=== PATIENT | female | born 1945 | race Caucasian/White ===

== ENCOUNTER 2016-11-15 09:33 | Emergency (ER) | payer MEDICARE, OTHER ==
[~2016-11-15] VITALS: Ht 160 cm; Wt 125.0 kg
[~2016-11-15 09:33] MED LIST: CALC500 PO; COMBAER INH; ECOT81TA2 PO; ENAL5TAB PO; GLIM4 PO; KCL20 PO; OMEP20TA PO; TIOT18I INH
[2016-11-15 09:41] VITALS: BP 172/67; PULSE 98; RESP 18; TEMP 98.6
[2016-11-15] MEDS ORDERED: traMADol HCL 50 MG TAB PO ONE (09:45)
[2016-11-15] MEDS ORDERED: FURO40TA PO (09:47)
[2016-11-15] MEDS ORDERED: BUME2TAB PO (09:47)
[2016-11-15] MEDS ORDERED: MAGN100T2 PO (09:47)
[2016-11-15] MEDS ORDERED: POTA-163 PO (09:47)
[2016-11-15] MEDS ORDERED: ASPI81TA81 PO (09:47)
--- NOTE | 2016-11-15 11:07 | RADRPT ---
EXAM DATE/TIME: 11/15/2016 10:06 [facility] COMPARISON: No previous studies available for comparison. INDICATIONS : Lower back pain after falling up the steps on a [place]. MEDICAL HISTORY : Hypertension. Chronic obstructive pulmonary disease. Renal calculi.Congestive heart failure. SURGICAL HISTORY : Appendectomy. Cholecystectomy.Lithotripsy. ENCOUNTER: Initial ACUITY: 1 day PAIN SCORE: 7/10 LOCATION: lumbar FINDINGS: There are five non-rib bearing vertebral bodies. The vertebral bodies are in normal alignment withou t evidence of subluxation or scoliosis. Degenerative disc disease with disc space narrowing and dave nal spondylosis is noted. Significant arthropathy is seen in the lumbar spine at L4-5 and L5-S1. The posterior elements are intact without evidence of spondylolysis. The pedicles are intact. Bony mineralization is normal. No fracture is identified. CONCLUSION: No acute disease. Degenerative disc disease and facet arthropathy. Carl Junior MD on November 15, 2016 at 11:03 Board Certified Radiologist. This report was verified electronically.
--- NOTE | 2016-11-15 11:09 | RADRPT ---
EXAM DATE/TIME: 11/15/2016 10:14 [facility] COMPARISON: No previous studies available for comparison. INDICATIONS : Left hip pain after falling up the steps on the [place]. MEDICAL HISTORY : Hypertension. Chronic obstructive pulmonary disease. Renal calculi.Congestive heart failure. SURGICAL HISTORY : Appendectomy. Cholecystectomy.Lithotripsy. ENCOUNTER: Initial ACUITY: 1 day PAIN SCORE: 7/10 LOCATION: Left hip FINDINGS: Examination of the left hip was performed with AP Pelvis. The primary and secondary trabecular patte rn of the femoral neck is intact. The hip joint is of normal width without significant sclerosis or bony hypertrophy. The acetabulum is grossly intact. CONCLUSION: No acute disease. Carl Junior MD on November 15, 2016 at 11:07 Board Certified Radiologist. This report was verified electronically.
--- NOTE | 2016-11-15 11:10 | RADRPT ---
EXAM DATE/TIME: 11/15/2016 10:16 [facility] COMPARISON: No previous studies available for comparison. INDICATIONS : Left knee pain after falling up the steps on the [place]. MEDICAL HISTORY : Hypertension. Chronic obstructive pulmonary disease. Renal calculi.Congestive heart failure. SURGICAL HISTORY : Appendectomy. Cholecystectomy.Lithotripsy. ENCOUNTER: Initial ACUITY: 1 day PAIN SCORE: 7/10 LOCATION: Left knee FINDINGS: Four view examination of the left knee demonstrates no evidence of fracture or dislocation. Bones samir ear demineralized. Mild arthropathy is noted with joint space narrowing and marginal spurring. Small joint effusion is identified. CONCLUSION: Mild arthropathy with small joint effusion but no evidence of acute fracture. Carl Junior MD on November 15, 2016 at 11:07 Board Certified Radiologist. This report was verified electronically.
--- NOTE | 2016-11-15 11:11 | RADRPT ---
EXAM DATE/TIME: 11/15/2016 10:17 [facility] COMPARISON: No previous studies available for comparison. INDICATIONS : Right knee pain after falling up the steps on a [place]. MEDICAL HISTORY : Hypertension. Chronic obstructive pulmonary disease. Renal calculi.Congestive heart failure. SURGICAL HISTORY : Appendectomy. Cholecystectomy.Lithotripsy. ENCOUNTER: Initial ACUITY: 1 day PAIN SCORE: 7/10 LOCATION: Right knee FINDINGS: Four view examination of the right knee demonstrates no evidence of fracture or dislocation. Decrease d bone density is noted. A prominent spur seen along the superior patellar margin. There is no eviden ce of joint effusion. CONCLUSION: Chronic arthropathy and bony demineralization. No acute process. Carl Junior MD on November 15, 2016 at 11:09 Board Certified Radiologist. This report was verified electronically.
--- NOTE | 2016-11-15 11:12 | RADRPT ---
EXAM DATE/TIME: 11/15/2016 10:18 [facility] COMPARISON: No previous studies available for comparison. INDICATIONS : Left tibia/fibula pain after falling up the steps on a [place]. MEDICAL HISTORY : Hypertension. Chronic obstructive pulmonary disease. Renal calculi.Congestive heart failure. SURGICAL HISTORY : Appendectomy. Cholecystectomy.Lithotripsy. ENCOUNTER: Initial ACUITY: 1 day PAIN SCORE: 7/10 LOCATION: Left tibia/fibula FINDINGS: Two view examination of the left tibia demonstrates no evidence of fracture or dislocation. Bony min eralization is normal. The soft tissue structures are intact. CONCLUSION: No acute disease. Carl Junior MD on November 15, 2016 at 11:10 Board Certified Radiologist. This report was verified electronically.
[2016-11-15] MEDS ORDERED: TRAM50TA PO (12:15)
--- NOTE | 2016-11-15 12:15 | PD ---
HPI Chief Complaint: Pain: Acute or Chronic Time Seen by Provider: 09:42 Travel History International Travel<30 days: No Contact w/Intl Traveler<30days: No Traveled to known affect area: No History of Present Illness HPI Patient is a 71 year old female who comes in complaining of knee pain after a fall yesterday. She says she was walking up the stairs [place] the [place] yesterday when she fell straight down on her knees. She denies hitting her head. She denies any other injuries. She says the pain is worse in her left knee. She has tried taking Tylenol for pain without relief. PFSH Past Medical History Depression: Yes Cancer: No Cardiovascular Problems: Yes Congestive Heart Failure: Yes COPD: Yes Diabetes: No Endocrine: No Gastrointestinal Disorders: No GERD: Yes Genitourinary: Yes Hepatitis: No Hiatal Hernia: No Hypertension: Yes Immune Disorder: No Implanted Vascular Access Dvce: No Kidney Stones: Yes (HX LITHOTRIPSY) Medical other: Yes (GERD) Musculoskeletal: No Neurologic: No Psychiatric: Yes Reproductive: No Respiratory: Yes (COPD) Thyroid Disease: No ?: Not Menopausal: Yes : 3 Para: 2 Past Surgical History Abdominal Surgery: Yes (63' APPENDECTOMY) Appendectomy: Yes Section: Yes (X 2) Cholecystectomy: Yes Genitourinary Surgery: Yes (LITHOTRIPSY 2006) Gynecologic Surgery: Yes (82' 87' ) Other Surgery: Yes (KIDNEY STONES) Social History Alcohol Use: No Tobacco Use: No Substance Use: No Allergies-Medications (Allergen,Severity, Reaction): Coded Allergies: Furadantin (Verified Allergy, Severe, SEIZURE, 07/14/15) Metoprolol (Verified Allergy, Severe, TONGUE SWELLING, 07/14/15) Reported Meds & Prescriptions Reported Meds & Active Scripts Active Tramadol (Tramadol HCl) 50 Mg Tab 50 Mg PO Q6H PRN Reported Bumetanide 2 Mg Tab 2 Mg PO BID Potassium Chloride ER (Potassium Chloride) 20 Meq Tab 20 Meq PO BID Aspir-81 (Aspirin) 81 Mg Tabdr 81 Mg PO DAILY Magnesium Citrate 100 Mg Tab 250 Mg PO DAILY PRN Furosemide 40 Mg Tab 40 Mg PO BID Review of Systems Except as stated in HPI: all other systems reviewed are Neg General / Constitutional: No: Fever, Chills Eyes: No: Blurred Vision HENT: No: Headaches, Lightheadedness Cardiovascular: No: Chest Pain or Discomfort Respiratory: No: Shortness of Breath Gastrointestinal: No: Nausea, Vomiting Musculoskeletal: Positive: Pain Skin: No Rash, No Change in Pigmentation Neurologic: No: Syncope Physical Exam Narrative GENERAL: Awake and alert, in no acute distress. SKIN: Focused skin assessment warm/dry. HEAD: Atraumatic. Normocephalic. EYES: Pupils equal and round. No scleral icterus. ENT: Mucous membranes pink and moist. NECK: Trachea midline. No JVD. CARDIOVASCULAR: Regular rate and rhythm. No murmur appreciated. RESPIRATORY: No accessory muscle use. Clear to auscultation. Breath sounds equal bilaterally. MUSCULOSKELETAL: No obvious deformities. No clubbing. No cyanosis. No edema. Tender to palpation of the lumbar spine. Pain with palpation of the left hip. Pain with movement of the left knee. Tender to palpation of the left knee as well as left lower extremity. Tender to palpation of the right knee. She has full range of motion of both knees. Sensation intact. NEUROLOGICAL: Awake and alert. No obvious cranial nerve deficits. Motor grossly within normal limits. Normal speech. PSYCHIATRIC: Appropriate mood and affect; insight and judgment normal. Data Data Last Documented VS Vital Signs Date Time Temp Pulse Resp B/P Pulse Ox O2 Delivery O2 Flow Rate FiO2 11/15/16 09:41 98.6 98 18 172/67 Orders Knee, Complete (4vws) (11/15/16 ) Spine, Lumbar Comp W/Obliq (11/15/16 ) Knee, Complete (4vws) (11/15/16 ) Tibia/Fibula (Ap/Lat) (11/15/16 ) Tramadol (Ultram) (11/15/16 09:45) Hip, Uni(Ap&Lat) W Ap Pelvis (11/15/16 ) MDM Medical Decision Making Medical Screen Exam Complete: Yes Emergency Medical Condition: Yes Differential Diagnosis Knee fracture versus pelvic fracture versus hip fracture versus lumbar spine fracture versus musculoskeletal strain Narrative Course Patient is a 71-year-old female comes in complaining of pain after a fall yesterday. Exam shows tenderness to left leg. X-rays of the lumbar spine, pelvis, left hip, left knee, left tib-fib as well as right knee performed. X- ray show no evidence of acute process. Patient given tramadol for pain. She reports feeling better. We'll be discharged with prescription for tramadol. Advised this may make her drowsy. Advised follow-up with a primary care doctor. Advised to return to the ED as needed for any worsening symptoms. Last 24 hours Impressions Tibia/Fibula X-Ray 11/15/16 0000 Signed Impressions: Service Date/Time: Tuesday, November 15, 2016 10:18 - CONCLUSION: No acute disease. Carl Junior MD Lumbar Spine X-Ray 11/15/16 0000 Signed Impressions: Service Date/Time: Tuesday, November 15, 2016 10:06 - CONCLUSION: No acute disease. Degenerative disc disease and facet arthropathy. Carl Junior MD Knee X-Ray 11/15/16 0000 Signed Impressions: Service Date/Time: Tuesday, November 15, 2016 10:17 - CONCLUSION: Chronic arthropathy and bony demineralization. No acute process. Carl Junior MD Knee X-Ray 11/15/16 0000 Signed Impressions: Service Date/Time: Tuesday, November 15, 2016 10:16 - CONCLUSION: Mild arthropathy with small joint effusion but no evidence of acute fracture. Carl Junior MD Hip and Pelvis X-Ray 11/15/16 0000 Signed Impressions: Service Date/Time: Tuesday, November 15, 2016 10:14 - CONCLUSION: No acute disease. Carl Junior MD Diagnosis Primary Impression: Fall Qualified Code: W19.XXXA - Fall, initial encounter Patient Instructions: Fall Prevention (ED), General Instructions, Muscle Strain (ED) Additional Instructions: Take pain medicine as needed. Be careful as the medication may make you drowsy. Follow up with your doctor. Return to the ED as needed for any worsening symptoms. Scripts Tramadol 50 Mg Tab50 Mg PO Q6H PRN (PAIN) #12 TAB Ref 0 Prov:Ashlyn Bay MD 11/15/16 Disposition: 01 DISCHARGE HOME Condition: Stable Ashlyn Bay MD Nov 15, 2016 12:15
== END 2016-11-15 12:25 | disposition home or self-care (01) ==
LOC: NEPD 09:33
DX: M25.462 Effusion, left knee (principal); I50.9 Heart failure, unspecified; J44.9 Chronic obstructive pulmonary disease, unspecified; I10 Essential (primary) hypertension; K21.9 Gastro-esophageal reflux disease without esophagitis; F32.9 Major depressive disorder, single episode, unspecified; W10.9XXA Fall (on) (from) unspecified stairs and steps, initial encounter; Z79.82 Long term (current) use of aspirin; Z79.899 Other long term (current) drug therapy
CPT/HCPCS: 72110; 73502; 73564; 73590; 99284